=== PATIENT | male | born 1975 | race Caucasian/White ===

== ENCOUNTER → 2017-08-22 | Outpatient (CLI) | payer BC ==
[~2017-08-22] MED LIST: APAP/BUTALBITAL1 TA1 PO; DULOXETINE60 MG PO; GENTAMICIN O5 ML/BOT OP; HYDROCODONE1 TABLET PO; NOMEDS *; PANTOPRAZOLE SO40 M1 PO; SEPTRA DS 800 M1 TAB PO
--- NOTE | 2017-08-22 10:45 | RADIOLOGY REPORT PS360 ---
CT ABD PELVIS W/O CONTRAST COMPARISON: CT scan the abdomen and pelvis stone protocol 03/09/2015 HISTORY: Left lower quadrant pain for 3 weeks TECHNIQUE: Multiaxial scans obtained from hemidiaphragms the pelvic floor and were performed with oral contrast only. Sagittal and coronal reformats were evaluated as well. FINDINGS: The lower lung luz are clear, again noted is a calcified granuloma right lower lobe and there is a calcified right hilar node. The liver is normal in size and shows diffuse fatty infiltration. Stomach spleen and pancreas appear normal. There has been a previous cholecystectomy. The adrenal glands are normal. The kidneys are normal size and there are small nonobstructing calculi in each kidney as noted previously. The small bowel appears grossly normal, the distal portion of the small bowel is opacified with oral contrast. There has been a previous appendectomy.. There is a moderate amount stool in ascending and transverse colon. There are a few scattered diverticuli of the sigmoid colon with is no diverticulitis. The urinary bladder and prostate are normal. IMPRESSION: Minimal diverticulosis of sigmoid colon, stable mild diffuse fatty infiltration of the liver, no other significant abnormality noted.
== END ==
LOC: RAD 09:22
DX: R10.32 Left lower quadrant pain (principal)